=== PATIENT | female | born 1950 | race Caucasian/White ===

== ENCOUNTER 2016-09-10 06:27 | Day surgery (SDC) | payer OTHER ==
[~2016-09-10] VITALS: Ht 160 cm; Wt 90.8 kg
[~2016-09-10 06:27] MED LIST: COZAAR50 MG PO; HYDROCHLOROTHIA25 MG PO; JANTOVEN6 MG PO; LIORESAL10 MG PO; PROAIR HFA8.5 GM IH; SYNTHROID100 MCG PO; SYNTHROID125 MCG PO
[2016-09-10 07:21] LABS: INTER. NORMALIZED RATIO 1.1
[2016-09-10] MEDS ORDERED: PERCOCET 5/31 TABLET PO (09:53)
[2016-09-10 11:08] VITALS: BP 128/61
[2016-09-10 12:17] VITALS: BP 133/61
== END 2016-09-10 12:35 | disposition home or self-care (01) ==
LOC: SDC 06:27
PROVIDERS: Surgery
PROC: 0WUF4JZ Supplement Abdominal Wall with Synthetic Substitute, Percutaneous Endoscopic Approach (ICD-10-PCS; principal; 2016-09-10)
DX: K43.0 Incisional hernia with obstruction, without gangrene (principal); E06.3 Autoimmune thyroiditis; Z86.711 Personal history of pulmonary embolism; Z86.718 Personal history of other venous thrombosis and embolism; Z79.01 Long term (current) use of anticoagulants; J43.9 Emphysema, unspecified; I10 Essential (primary) hypertension; F17.200 Nicotine dependence, unspecified, uncomplicated; Z88.0 Allergy status to penicillin; Z88.8 Allergy status to other drugs, medicaments and biological substances; Z91.09 Other allergy status, other than to drugs and biological substances
CPT/HCPCS: 85610; 94640; C1781; J0330; J0690; J1100; J1170; J1885; J2405; J2710; J3010